=== PATIENT | female | born 1955 ===

== ENCOUNTER 2023-03-22 13:55 | Emergency (ER) | payer OTHER ==
[~2023-03-22] VITALS: Ht 152.4 cm; Wt 54.4 kg
== END 2023-03-22 17:24 | disposition left against medical advice (07) ==
LOC: ER 13:55
DX: Z53.21 Procedure and treatment not carried out due to patient leaving prior to being seen by health care provider (principal)

== ENCOUNTER 2025-01-24 05:40 | Day surgery (SDC) | payer OTHER ==
[2025-01-24] MEDS ORDERED: DIPHENHYDRAMINE HCL 50 MG/ML VIAL 1ML IV ONE ×2 (09:45)
[2025-01-24] MEDS ORDERED: fentaNYL CITRATE 50 MCG/ML AMPUL IV PUSH ONE (09:45)
[2025-01-24] MEDS ORDERED: MIDAZOLAM HCL 2 MG/2 ML VIAL IV ONE (09:45)
== END 2025-01-24 11:00 | disposition home or self-care (01) ==
LOC: AMB-ENDOS 05:40
PROVIDERS: ATTEND Internal Medicine
DX: K52.89 Other specified noninfective gastroenteritis and colitis (principal); K57.30 Diverticulosis of large intestine without perforation or abscess without bleeding; K21.9 Gastro-esophageal reflux disease without esophagitis; K29.00 Acute gastritis without bleeding; K31.7 Polyp of stomach and duodenum; Z88.0 Allergy status to penicillin; Z88.2 Allergy status to sulfonamides

== ENCOUNTER 2025-06-20 08:42 | Outpatient (CLI) | payer OTHER | END 2025-06-20 08:44 | disposition home or self-care (01) | LOC: TOM 08:42 | PROVIDERS: ATTEND Internal Medicine | DX: K57.92 Diverticulitis of intestine, part unspecified, without perforation or abscess without bleeding (principal) | CPT/HCPCS: 74178; Q9965 ==